=== PATIENT | female | born 1940 | race Caucasian/White ===

== ENCOUNTER → 2023-04-03 14:58 | Outpatient (REF) | payer MEDICARE, BC, SELFPAY | LOC: WDC 14:58 | PROVIDERS: ATTENDING PHYSICIAN Nurse Practitioner Family | DX: R92.8 Other abnormal and inconclusive findings on diagnostic imaging of breast (principal) | CPT/HCPCS: 76642 ==

== ENCOUNTER → 2023-04-17 14:16 | Outpatient (REF) | payer MEDICARE, BC, SELFPAY | LOC: WDC 14:16 | PROVIDERS: ATTENDING PHYSICIAN Nurse Practitioner Family; FAMILY PHYSICIAN Family Medicine | DX: N63.20 Unspecified lump in the left breast, unspecified quadrant (principal) | CPT/HCPCS: 76642 ==

== ENCOUNTER → 2023-05-03 08:06 | Outpatient (REF) | payer MEDICARE, BC, SELFPAY ==
[2023-05-03 09:37] LABS: ALT (SGPT) 22 U/L (0-35); AST (SGOT) 33 U/L (14-36); Albumin 3.8 g/dl (3.5-5.0); Alkaline Phosphatase 67 U/L (38-126); Blood Urea Nitrogen 18 mg/dl (7-17); Calcium 9.9 mg/dl (8.4-10.2); Carbon Dioxide 31 mmol/L (22-30); Chloride 99 mmol/L (98-107); Glucose 100 mg/dl (70-99); HDL Cholesterol 97 mg/dl; LDL Cholesterol, Calculated 46 mg/dl; Potassium 4.1 mmol/L (3.5-5.1); Sodium 136 mmol/L (135-145); Total Bilirubin 0.8 mg/dl (0.2-1.3); Total Cholesterol 159 mg/dl (50-199); Total Protein 6.6 g/dl (6.3-8.2); Triglyceride 80 mg/dl (10-149); Very Low Density Lipoprotein 16 mg/dl (0-30); eGFR > 60.00
[2023-05-03 10:01] LABS: Vitamin D, 25-OH*** 37.3 ng/mL (30-80)
[2023-05-03 10:15] LABS: TSH Reflex To Free T4 0.59 uIU/ml (0.47-4.68)
[2023-05-03 10:34] LABS: Vitamin B12 > 1000 pg/ml (239-931)
== END ==
LOC: REG 08:06
PROVIDERS: ATTENDING PHYSICIAN Family Medicine
DX: E87.1 Hypo-osmolality and hyponatremia (principal); R74.01 Elevation of levels of liver transaminase levels; Z86.73 Personal history of transient ischemic attack (TIA), and cerebral infarction without residual deficits; R41.3 Other amnesia; R41.89 Other symptoms and signs involving cognitive functions and awareness; E55.9 Vitamin D deficiency, unspecified
CPT/HCPCS: 36415; 80053; 80061; 82306; 82607; 84443

== ENCOUNTER → 2023-06-10 10:51 | Outpatient (REF) | payer MEDICARE, BC, SELFPAY ==
[2023-06-10 12:07] LABS: ALT (SGPT) 27 U/L (0-35); AST (SGOT) 36 U/L (14-36); Albumin 3.8 g/dl (3.5-5.0); Alkaline Phosphatase 69 U/L (38-126); Blood Urea Nitrogen 18 mg/dl (7-17); Carbon Dioxide 30 mmol/L (22-30); Chloride 96 mmol/L (98-107); Glucose 120 mg/dl (70-99); Potassium 4.2 mmol/L (3.5-5.1); Sodium 134 mmol/L (135-145); Total Bilirubin 0.5 mg/dl (0.2-1.3); Total Protein 6.6 g/dl (6.3-8.2); eGFR 55.55
[2023-06-10 12:18] LABS: Vitamin D, 25-OH*** 44.8 ng/mL (30-80)
== END ==
LOC: REG 10:51
PROVIDERS: ATTENDING PHYSICIAN Internal Medicine; FAMILY PHYSICIAN Family Medicine
DX: M81.0 Age-related osteoporosis without current pathological fracture (principal); Z51.81 Encounter for therapeutic drug level monitoring
CPT/HCPCS: 36415; 80053; 82306

== ENCOUNTER → 2023-07-15 14:49 | Outpatient (REF) | payer MEDICARE, BC, SELFPAY | LOC: CLAB 14:49 | PROVIDERS: ATTENDING PHYSICIAN Urology | DX: R31.29 Other microscopic hematuria (principal) | CPT/HCPCS: 88112 ==

== ENCOUNTER → 2023-07-30 08:25 | Outpatient (REF) | payer MEDICARE, BC, SELFPAY | LOC: RAD 08:25 | PROVIDERS: ATTENDING PHYSICIAN Family Medicine | DX: R59.0 Localized enlarged lymph nodes (principal) | CPT/HCPCS: 76536 ==

== ENCOUNTER 2023-08-23 11:31 | Outpatient (RCR) | payer MEDICARE, BC, SELFPAY | END 2023-08-23 23:59 | disposition home or self-care (01) | LOC: ROT 11:31 | PROVIDERS: ATTENDING PHYSICIAN Psychiatry & Neurology Neurology; FAMILY PHYSICIAN Family Medicine | DX: R41.89 Other symptoms and signs involving cognitive functions and awareness (principal); Z73.6 Limitation of activities due to disability | CPT/HCPCS: 96125; 97129; 97130; 97167; 97535 ==

== ENCOUNTER 2023-09-20 10:10 | Outpatient (RCR) | payer MEDICARE, BC, SELFPAY | END 2023-09-20 23:59 | disposition home or self-care (01) | LOC: ROT 10:10 | PROVIDERS: ATTENDING PHYSICIAN Psychiatry & Neurology Neurology; FAMILY PHYSICIAN Family Medicine | DX: R41.89 Other symptoms and signs involving cognitive functions and awareness (principal); Z73.6 Limitation of activities due to disability; R41.841 Cognitive communication deficit | CPT/HCPCS: 97129; 97130; 97535 ==

== ENCOUNTER → 2023-09-30 14:44 | Outpatient (REF) | payer MEDICARE, BC, SELFPAY | LOC: WDC 14:44 | PROVIDERS: ATTENDING PHYSICIAN Nurse Practitioner Family; FAMILY PHYSICIAN Family Medicine | DX: R92.8 Other abnormal and inconclusive findings on diagnostic imaging of breast (principal) | CPT/HCPCS: 76642 ==

== ENCOUNTER 2023-10-10 10:04 | Outpatient (RCR) | payer MEDICARE, BC, SELFPAY | END 2023-10-10 23:59 | disposition home or self-care (01) | LOC: ROT 10:04 | PROVIDERS: ATTENDING PHYSICIAN Psychiatry & Neurology Neurology; FAMILY PHYSICIAN Family Medicine | DX: R41.89 Other symptoms and signs involving cognitive functions and awareness (principal); Z73.6 Limitation of activities due to disability; R41.841 Cognitive communication deficit | CPT/HCPCS: 97129; 97130; 97535 ==

== ENCOUNTER → 2023-12-18 10:19 | Outpatient (REF) | payer MEDICARE, BC, SELFPAY ==
[2023-12-18 11:35] LABS: ALT (SGPT) 24 U/L (0-35); AST (SGOT) 33 U/L (14-36); Albumin 3.8 g/dl (3.5-5.0); Alkaline Phosphatase 59 U/L (38-126); Blood Urea Nitrogen 19 mg/dl (7-17); Calcium 9.8 mg/dl (8.4-10.2); Carbon Dioxide 29 mmol/L (22-30); Chloride 100 mmol/L (98-107); Glucose 104 mg/dl (70-99); Potassium 4.4 mmol/L (3.5-5.1); Sodium 138 mmol/L (135-145); Total Bilirubin 0.6 mg/dl (0.2-1.3); Total Protein 6.5 g/dl (6.3-8.2); eGFR 55.21
[2023-12-18 11:40] LABS: Vitamin D, 25-OH*** 33.3 ng/mL (30-80)
== END ==
LOC: REG 10:19
PROVIDERS: ATTENDING PHYSICIAN Internal Medicine; FAMILY PHYSICIAN Family Medicine
DX: M81.0 Age-related osteoporosis without current pathological fracture (principal); Z51.81 Encounter for therapeutic drug level monitoring
CPT/HCPCS: 36415; 80053; 82306

== ENCOUNTER → 2024-01-21 11:08 | Outpatient (REF) | payer MEDICARE, BC, SELFPAY ==
[2024-01-21 13:09] LABS: ALT (SGPT) 24 U/L (0-35); AST (SGOT) 34 U/L (14-36); Albumin 3.9 g/dl (3.5-5.0); Alkaline Phosphatase 73 U/L (38-126); Blood Urea Nitrogen 15 mg/dl (7-17); Calcium 9.5 mg/dl (8.4-10.2); Carbon Dioxide 30 mmol/L (22-30); Chloride 99 mmol/L (98-107); Glucose 87 mg/dl (70-99); Potassium 4.3 mmol/L (3.5-5.1); Sodium 137 mmol/L (135-145); Total Bilirubin 0.7 mg/dl (0.2-1.3); Total Protein 6.4 g/dl (6.3-8.2); eGFR 55.21
[2024-01-21 13:31] LABS: TSH 0.45 uIU/ml (0.47-4.68)
== END ==
LOC: REG 11:08
PROVIDERS: ATTENDING PHYSICIAN Internal Medicine Endocrinology, Diabetes & Metabolism
DX: E05.90 Thyrotoxicosis, unspecified without thyrotoxic crisis or storm (principal)
CPT/HCPCS: 36415; 80053; 84443

== ENCOUNTER → 2024-01-29 08:59 | Outpatient (REF) | payer MEDICARE, BC, SELFPAY | LOC: RAD 08:59 | PROVIDERS: ATTENDING PHYSICIAN Physician Assistant; FAMILY PHYSICIAN Family Medicine | DX: M81.0 Age-related osteoporosis without current pathological fracture (principal) | CPT/HCPCS: 77080 ==

== ENCOUNTER → 2024-04-08 13:07 | Outpatient (REF) | payer MEDICARE, BC, SELFPAY ==
[2024-04-08 13:28] LABS: % Basophils 0.4 % (0-2); % Eosinophils 1.8 % (0-6); % Immature Granulocytes 0.3 % (0-0.5); % Lymphocytes 14.3 % (20.5-51.1); % Monocytes 6.2 % (1.7-9.3); Absolute Eosinophils 0.2 10^3/uL (0-0.7); Absolute Lymphocytes 1.4 10^3/uL (1.2-3.4); Absolute Monocytes 0.6 10^3/uL (0.1-0.6); Absolute Neutrophils 7.6 10^3/uL (1.4-6.5); Hematocrit 37.2 % (37.0-47.0); Hemoglobin 12.6 g/dL (12.0-16.0); Mean Corp Hgb Conc. 33.9 g/dL (33.0-37.0); Mean Corpuscular Hgb 30.4 pg (27.0-31.0); Mean Corpuscular Volume 89.6 fL (81.0-99.0); Mean Platelet Volume 9.9 fL (7.4-10.4); Nucleated Red Blood Cells % 0 %; Platelet Count 244 10^3/uL (130-400); Red Blood Cell Count 4.15 10^6/uL (4.20-5.40); White Blood Cell Count 9.8 10^3/uL (4.8-10.8)
[2024-04-08 13:50] LABS: ALT (SGPT) 29 U/L (0-35); AST (SGOT) 37 U/L (14-36); Albumin 3.7 g/dl (3.5-5.0); Alkaline Phosphatase 72 U/L (38-126); Blood Urea Nitrogen 16 mg/dl (7-17); Carbon Dioxide 30 mmol/L (22-30); Chloride 96 mmol/L (98-107); Glucose 128 mg/dl (70-99); Potassium 4.3 mmol/L (3.5-5.1); Sodium 132 mmol/L (135-145); Total Bilirubin 0.5 mg/dl (0.2-1.3); Total Protein 6.5 g/dl (6.3-8.2); eGFR 44.36
[2024-04-08 13:54] LABS: Erythrocyte Sed Rate 16 mm/hour (0-20)
[2024-04-08 14:25] LABS: TSH Reflex To Free T4 0.29 uIU/ml (0.47-4.68)
[2024-04-08 14:32] LABS: HIV Combo Negative (Negative)
[2024-04-08 15:01] LABS: Free T4 1.29 ng/dl (0.78-2.19)
[2024-04-10 06:48] LABS: Quantiferon Mitogen minus NIL 9.97 IU/mL; Quantiferon NIL 0.03 IU/mL; Quantiferon Plus TB1 minus NIL 0.02 IU/mL (<=0.34); Quantiferon Plus TB2 minus NIL 0.01 IU/mL (<=0.34); Quantiferon TB Gold Plus Negative (Negative)
== END ==
LOC: REG 13:07
PROVIDERS: ATTENDING PHYSICIAN Student in an Organized Health Care Education/Training Program
DX: R61 Generalized hyperhidrosis (principal); N63.10 Unspecified lump in the right breast, unspecified quadrant; E04.1 Nontoxic single thyroid nodule; R22.1 Localized swelling, mass and lump, neck
CPT/HCPCS: 36415; 80053; 84439; 84443; 85025; 85652; 86140; 86480; 87389

== ENCOUNTER → 2024-04-14 13:55 | Outpatient (REF) | payer MEDICARE, BC, SELFPAY ==
[2024-04-14 15:56] LABS: ALT (SGPT) 26 U/L (0-35); AST (SGOT) 33 U/L (14-36); Alkaline Phosphatase 72 U/L (38-126); Blood Urea Nitrogen 19 mg/dl (7-17); Calcium 9.6 mg/dl (8.4-10.2); Carbon Dioxide 28 mmol/L (22-30); Chloride 95 mmol/L (98-107); Glucose 101 mg/dl (70-99); Potassium 4.3 mmol/L (3.5-5.1); Sodium 133 mmol/L (135-145); Total Bilirubin 0.7 mg/dl (0.2-1.3); Total Protein 6.6 g/dl (6.3-8.2); eGFR 49.24
== END ==
LOC: WDC 13:55
PROVIDERS: ATTENDING PHYSICIAN Student in an Organized Health Care Education/Training Program
DX: R92.8 Other abnormal and inconclusive findings on diagnostic imaging of breast (principal); E87.1 Hypo-osmolality and hyponatremia
CPT/HCPCS: 36415; 76642; 80053

== ENCOUNTER → 2024-04-17 09:06 | Outpatient (REF) | payer MEDICARE, BC, SELFPAY | LOC: HWRAD 09:06 | PROVIDERS: ATTENDING PHYSICIAN Student in an Organized Health Care Education/Training Program | DX: R22.1 Localized swelling, mass and lump, neck (principal); E04.1 Nontoxic single thyroid nodule | CPT/HCPCS: 76536 ==

== ENCOUNTER → 2024-04-28 14:39 | Outpatient (REF) | payer MEDICARE, BC, SELFPAY | LOC: RAD 14:39 | PROVIDERS: ATTENDING PHYSICIAN Student in an Organized Health Care Education/Training Program | DX: R61 Generalized hyperhidrosis (principal) | CPT/HCPCS: 71260; 74177; Q9967 ==

== ENCOUNTER 2024-04-30 15:17 | Emergency (ER) | payer MEDICARE, BC, SELFPAY ==
[2024-04-30 15:23] VITALS: BP 162/75
[2024-04-30 16:03] LABS: % Basophils 0.8 % (0-2); % Eosinophils 2.3 % (0-6); % Immature Granulocytes 0.3 % (0-0.5); % Lymphocytes 20.3 % (20.5-51.1); % Monocytes 8.1 % (1.7-9.3); % Neutrophils 68.2 % (42.2-75.2); Absolute Basophils 0.1 10^3/uL (0-0.2); Absolute Eosinophils 0.2 10^3/uL (0-0.7); Absolute Lymphocytes 1.3 10^3/uL (1.2-3.4); Absolute Monocytes 0.5 10^3/uL (0.1-0.6); Absolute Neutrophils 4.5 10^3/uL (1.4-6.5); Hematocrit 37.4 % (37.0-47.0); Hemoglobin 12.8 g/dL (12.0-16.0); Mean Corp Hgb Conc. 34.2 g/dL (33.0-37.0); Mean Corpuscular Hgb 30.6 pg (27.0-31.0); Mean Corpuscular Volume 89.5 fL (81.0-99.0); Mean Platelet Volume 11.1 fL (7.4-10.4); Nucleated Red Blood Cells % 0 %; Platelet Count 193 10^3/uL (130-400); Red Blood Cell Count 4.18 10^6/uL (4.20-5.40); Red Cell Dist. Width 13.3 % (11.5-14.5); White Blood Cell Count 6.6 10^3/uL (4.8-10.8)
[2024-04-30 16:16] LABS: ALT (SGPT) 26 U/L (0-35); AST (SGOT) 33 U/L (14-36); Albumin 4.1 g/dl (3.5-5.0); Alkaline Phosphatase 78 U/L (38-126); Blood Urea Nitrogen 12 mg/dl (7-17); Calcium 10.2 mg/dl (8.4-10.2); Carbon Dioxide 30 mmol/L (22-30); Chloride 98 mmol/L (98-107); Glucose 106 mg/dl (70-99); Potassium 4.8 mmol/L (3.5-5.1); Sodium 133 mmol/L (135-145); Total Bilirubin 0.9 mg/dl (0.2-1.3); Total Protein 6.6 g/dl (6.3-8.2); eGFR 55.21
[2024-04-30 16:51] VITALS: BMI 25.8
[2024-04-30 17:04] LABS: Urine Albumin Negative (Neg - Trace); Urine Bilirubin Negative (Negative); Urine Character Clear (Clear); Urine Color Yellow; Urine Glucose Negative (Negative); Urine Ketone Negative (Negative); Urine Leukocyte 1+ (Negative); Urine Nitrite Negative (Negative); Urine Occult Blood Negative (Negative); Urine Urobilinogen Negative (Neg - 1+)
[2024-04-30 17:13] LABS: Urine Red Blood Cell 0-2 /HPF (0-2)
[2024-04-30 17:14] LABS: Urine Bacteria Few (Negative)
[2024-04-30 19:28] VITALS: BP 165/63
--- NOTE | 2024-04-30 20:13 | ED.GENMED ---
History of Present Illness
General
Chief Complaint: Weakness
Source: patient and family
Exam Limitations: dementia
Time Seen by Provider: 04/30/24 17:16
History of Present Illness
History of Present Illness:
83-year-old female with a history of dementia who presents with persistent weakness. Symptoms started at the end of February and have persisted. states that the patient was brought in today mostly because they thought they could get some
'testing expedited'. Patient seen the PCP. She had a chest abdomen pelvis CT. She had outpatient labs. She has had no fevers. No pain. She states she is just mostly fatigued. She wants to lay down but she has not slept. states she
has been eating but just a little bit less than usual. No vomiting. No rash. No headaches. No vision changes. No focal motor weakness. Has been followed by the PCP
Past History
Past History
ED Past Medical History: Cancer (Breast CA), CVA, GERD, HTN and Hypercholesterolemia
ED Past Surgical History: and Other (Bunionectomy, Bilateral mastectomy)
Social History
Tobacco: Former smoker
Alcohol: Occasional
Personal:
Living: with family
Phy Exam
Physical Exam
Physical Exam:
CONSTITUTIONAL Patient alert and oriented to person, place. Well-appearing. Vital signs reviewed.
HEAD atraumatic, normocephalic.
EYES eyelids normal to inspection, Extraocular muscles intact, Conjunctiva normal, Sclera normal.
NECK normal range of motion, Trachea midline, no jugular venous distention.
RESPIRATORY CHEST No respiratory distress noted, Chest expansion equal, Bilateral breath sounds clear.
CARDIOVASCULAR regular rate and rhythm, Heart sounds normal.
ABDOMEN abdomen nontender, Bowel sounds normal. No distention.
BACK normal inspection, no obvious deformities
UPPER EXTREMITY range of motion normal, Motor strength normal, no cyanosis, no edema.
LOWER EXTREMITY range of motion normal, Motor strength normal, no cyanosis, no edema.
NEURO Speech normal, No focal motor deficits, Cranial Nerves intact to screening exam.
SKIN skin warm, dry, and normal in color.
Course
Orders/Labs/Results
Orders:
Orders
04/30/24 15:38
Complete Blood Count/With Diff Urgent
Comprehensive Metabolic Panel Urgent
04/30/24 16:57
Urinalysis Reflex To Culture Urgent
Date Specimen was Collected: 04/30/24
Time Specimen was Collected: 15:27
Urine Microscopic Reflex Cult Urgent
Urine Culture Urgent
MART[facility]NEZ Source: U
Specimen Description:
Date Specimen was Collected: 04/30/24
Time Specimen was Collected: 15:27
04/30/24 17:46
CT Head W/o Iv Contrast Urgent
Comment:
Reason For Exam: change in ms, weakness
Abnormal Lab Results
04/30/24 04/30/24
15:38 16:57
RBC 4.18 L 10^6/uL
(4.20-5.40)
MPV 11.1 H fL
(7.4-10.4)
Lymphocytes % 20.3 L %
(20.5-51.1)
Sodium 133 L mmol/L
(135-145)
Glucose 106 H mg/dl
(70-99)
Leukocyte Esterase Rfl 1+ A
(Negative)
Urine Bacteria (Reflex) Few A
(Negative)
04/30/24 15:38
04/30/24 15:38
Vital Signs
Initial and Last Documented VS:
Initial Vital Signs
Temp Pulse Resp BP Pulse Ox
98.0 F 65 16 162/75 98
04/30/24 15:23 04/30/24 15:23 04/30/24 15:23 04/30/24 15:23 04/30/24 15:23
Last Documented Vital Signs
Temp Pulse Resp BP Pulse Ox
98.0 F 60 16 165/63 95
04/30/24 15:23 04/30/24 19:28 04/30/24 19:28 04/30/24 19:28 04/30/24 19:28
MDM/Problems Addressed
MDM/Problems Addressed:
Generalized weakness, fatigue
*Pulse Oximetry
Patient hypoxic: no
*Critical Care Note
Total Time (30-74mins, 75-104mins- exclusive of procedures): Not Applicable
Data Reviewed
Source: patient and family
Patient Management
Escalation/DeEscalation of care consider admission/obs:
Patient appears quite well. Vital signs okay, labs okay, imaging from today reviewed and negative. Recent CT of chest abdomen pelvis grossly unremarkable for acute findings. I do think she is stable for discharge and outpatient follow-up PCP and
continued workup. Question whether dementia is playing a bit of a role. Patient admits that sometimes she 'cannot remember'. For example she cannot really remember when this all started or how she felt yesterday.
ED Attending Note
-
Portions of this chart may have been created with voice recognition software.� Occasional wrong word or��sound alike� substitutions may have occurred due to the inherent limitations of voice recognition software.
Discharge Plan
Departure
Patient Disposition: Home (Routine Discharge)
Date of Disposition: 04/30/24
Time of Disposition: 20:16
Patient with high blood pressure during this ER visit?: Yes
Discharge Problem:
Generalized weakness, Fatigue
Instructions: Generalized Weakness (DC), BLOOD PRESSURE
Prescriptions:
No Action
aripiprazole [Abilify] 2 mg Tablet
2 mg PO DAILY
valsartan 160 mg Capsule
160 mg PO DAILY
escitalopram oxalate [Lexapro] 20 mg Tablet
20 mg PO DAILY
amlodipine [Norvasc] 5 mg Tablet
5 mg PO DAILY
atorvastatin 40 mg tablet
40 mg PO DAILY
aspirin 81 mg tablet,delayed release (DR/EC)
81 mg PO DAILY
amoxicillin-pot clavulanate 875-125 mg tablet
1 tab PO Q12H Qty: 6 0RF
Referrals:
Soledad Hannon MD [Family Provider] -
Activity Restrictions/Additional Instructions:
Please see your doctor in the next 3 to 5 days for follow-up and reevaluation. Return immediately for worsening symptoms, fever, weakness or any other concerns.
Interventions
Interventions:
*Risk Screen - Suicide Last Done: 04/30/24 15:23
*General Assessment Last Done: 04/30/24 16:55
*Neglect/Abuse Screening Last Done: 04/30/24 15:23
*ED- Fall Risk Assessment Last Done: 04/30/24 16:54
*ED COVID-19 Vaccine History Last Done: 04/30/24 16:54
ED- Cardiac Assessment Last Done: 04/30/24 17:03
ED- Neurological Assessment Last Done: 04/30/24 17:04
ED- Pulmonary Assessment Last Done: 04/30/24 17:05
Discharge Date and Time
Print Language: MAURITIAN
== END 2024-04-30 20:32 | disposition home or self-care (01) ==
LOC: EMR 15:17
PROVIDERS: Emergency Medicine; EMERGENCY PHYSICIAN Emergency Medicine; FAMILY PHYSICIAN Student in an Organized Health Care Education/Training Program
DX: R53.1 Weakness (principal); R53.83 Other fatigue; E78.00 Pure hypercholesterolemia, unspecified; I10 Essential (primary) hypertension; K21.9 Gastro-esophageal reflux disease without esophagitis; F03.90 Unspecified dementia, unspecified severity, without behavioral disturbance, psychotic disturbance, mood disturbance, and anxiety; Z85.3 Personal history of malignant neoplasm of breast; Z86.73 Personal history of transient ischemic attack (TIA), and cerebral infarction without residual deficits; Z87.891 Personal history of nicotine dependence
CPT/HCPCS: 99284; 70450; 80053; 81003; 81015; 85025; 87086

== ENCOUNTER → 2024-05-12 09:37 | Outpatient (REF) | payer MEDICARE, BC, SELFPAY ==
[2024-05-12 11:55] LABS: ALT (SGPT) 22 U/L (0-35); AST (SGOT) 29 U/L (14-36); Alkaline Phosphatase 82 U/L (38-126); Blood Urea Nitrogen 15 mg/dl (7-17); Calcium 10.1 mg/dl (8.4-10.2); Carbon Dioxide 31 mmol/L (22-30); Chloride 100 mmol/L (98-107); Glucose 91 mg/dl (70-99); Potassium 4.8 mmol/L (3.5-5.1); Sodium 135 mmol/L (135-145); Total Bilirubin 0.8 mg/dl (0.2-1.3); Total Protein 6.6 g/dl (6.3-8.2); eGFR > 60.00
[2024-05-12 12:16] LABS: Glycohemoglobin (HgbA1c) 6.1 % (4.0-5.6)
[2024-05-12 12:17] LABS: TSH 0.59 uIU/ml (0.47-4.68)
== END ==
LOC: REG 09:37
PROVIDERS: ATTENDING PHYSICIAN Internal Medicine Endocrinology, Diabetes & Metabolism
DX: E05.90 Thyrotoxicosis, unspecified without thyrotoxic crisis or storm (principal); R73.01 Impaired fasting glucose
CPT/HCPCS: 36415; 80053; 83036; 84443

== ENCOUNTER → 2024-05-22 11:17 | Outpatient (REF) | payer MEDICARE, BC, SELFPAY | LOC: RAD 11:17 | PROVIDERS: ATTENDING PHYSICIAN Student in an Organized Health Care Education/Training Program | DX: N28.1 Cyst of kidney, acquired (principal) | CPT/HCPCS: 76775 ==

== ENCOUNTER 2024-06-19 06:24 | Day surgery (SDC) | payer MEDICARE, BC, SELFPAY | END 2024-06-19 16:14 | disposition home or self-care (01) | LOC: GI 06:24 | PROVIDERS: ATTENDING PHYSICIAN Internal Medicine Gastroenterology; FAMILY PHYSICIAN Student in an Organized Health Care Education/Training Program | DX: R93.3 Abnormal findings on diagnostic imaging of other parts of digestive tract (principal); R19.5 Other fecal abnormalities; K22.89 Other specified disease of esophagus; K44.9 Diaphragmatic hernia without obstruction or gangrene; K31.89 Other diseases of stomach and duodenum; K29.50 Unspecified chronic gastritis without bleeding | CPT/HCPCS: 45378; 43239; 88305; 88342 ==

== ENCOUNTER → 2024-12-17 14:03 | Outpatient (REF) | payer MEDICARE, BC, SELFPAY | LOC: WDC 14:03 | PROVIDERS: ATTENDING PHYSICIAN Student in an Organized Health Care Education/Training Program | DX: R92.8 Other abnormal and inconclusive findings on diagnostic imaging of breast (principal) | CPT/HCPCS: 76642 ==